=== PATIENT | female | born 1980 | race Caucasian/White ===

== ENCOUNTER 2017-03-04 08:20 | Outpatient (CLI) | payer OTHER ==
[~2017-03-04 08:20] MED LIST: ACIDOPHILUS1 EAC1 PO; AFREZZA1 EAC1; ALBUTEROL2.5 MG/3 M IH; ALDOMET500 MG PO; ASPIRIN81 MG PO; HUMULIN 70100 UNIT/1 SUBCUTANEO; HUMULIN N100 UNIT/2 SUBCUTANEO; KEFLEX500 MG PO; MACRODANTIN100 M1 PO; NOVOLIN R100 UNIT/1 SUBCUTANEO; PEPCID40 MG PO; PHENERGAN25 MG PO; PRENATAL TABLE1 EAC1 PO; PRENATAL TABLE1 EAC3 PO
[2017-03-04] MEDS ORDERED: AMPICILLIN TRI500 MG PO (08:45)
[2017-03-04] MEDS ORDERED: PRENATAL 19 TA1 EACH PO (08:46)
== END 2017-03-04 22:20 | disposition left against medical advice (07) ==
LOC: OBS/DEL 08:20
DX: O26.893 Other specified pregnancy related conditions, third trimester (principal); R10.2 Pelvic and perineal pain; M54.9 Dorsalgia, unspecified

== ENCOUNTER 2017-03-07 11:00 | Inpatient (IN) | payer OTHER ==
[~2017-03-07] VITALS: Ht 170.2 cm; Wt 3.2 kg
[~2017-03-07 11:00] MED LIST changes: +AMPICILLIN TRI500 MG PO; +PRENATAL 19 TA1 EACH PO
== END 2017-03-11 11:13 | disposition home or self-care (01) | DRG 766 ==
LOC: O/R 03-08 05:46 → OB/GYN 03-08 11:00
PROVIDERS: Obstetrics & Gynecology
PROC: 4A1HXCZ Monitoring of Products of Conception, Cardiac Rate, External Approach (ICD-10-PCS; 2017-03-08)
PROC: 10D00Z1 Extraction of Products of Conception, Low, Open Approach (ICD-10-PCS; principal; 2017-03-08 14:45)
DX: O10.913 Unspecified pre-existing hypertension complicating pregnancy, third trimester (principal); O24.419 Gestational diabetes mellitus in pregnancy, unspecified control; Z3A.38 38 weeks gestation of pregnancy; Z37.0 Single live birth